=== PATIENT | male | born 1975 | race Caucasian/White ===

== ENCOUNTER 2018-11-08 16:07 | Emergency (ER) | payer MEDICAID ==
[~2018-11-08] VITALS: Ht 180.3 cm; Wt 62.0 kg
[~2018-11-08 16:07] MED LIST: LACT1CAP26 PO; NO HOME MEDS
[2018-11-08] MEDS ORDERED: TETanus/Pertussis (Acell)/Diphther VAC/PF (Tdap-Adult) 0.5ml syringe IM ONE (16:15)
[2018-11-08] MEDS ORDERED: normal saline 1000ML IV soln IVB ONE (16:15)
[2018-11-08] MEDS ORDERED: LIDOcaine 1% w/epiNEPHrine 1:200,000 30ml vial IM ONE (16:15)
[2018-11-08 16:47] LABS: BASOPHILS # (AUTO) 0.1 X10'3 (0-0.2); BASOPHILS % (AUTO) 0.7 % (0-1); EOSINOPHILS # (AUTO) 0.1 X10'3 (0-0.9); EOSINOPHILS % (AUTO) 1.4 % (0-6); HEMATOCRIT 40.4 % (42.0-52.0); HEMOGLOBIN 13.9 g/dl (14.0-17.9); LYMPHOCYTES # (AUTO) 1.9 X10'3 (1.1-4.8); LYMPHOCYTES % (AUTO) 19.4 % (21-51); MEAN CORPUSCULAR HEMOGLOBIN 32.4 PG (27.0-31.0); MEAN CORPUSCULAR HGB CONC 34.3 g/dL (33.0-36.5); MEAN CORPUSCULAR VOLUME 94.4 FL (78-98); MEAN PLATELET VOLUME 9.1 FL (7.4-10.4); MONOCYTES % (AUTO) 10.6 % (2-12); NEUTROPHILS # (AUTO) 6.5 X10'3 (1.8-7.7); NEUTROPHILS % (AUTO) 67.9 % (42-75); PLATELET COUNT 248 X10'3 (140-440); RED BLOOD COUNT 4.28 X10'6 (4.70-6.10); RED CELL DISTRIBUTION WIDTH 14.8 % (11.5-14.5); WHITE BLOOD COUNT 9.6 X10'3 (4.5-11.0)
[2018-11-08 16:59] VITALS: BP_DIAS 97
[2018-11-08 17:00] LABS: ALANINE AMINOTRANSFERASE 448 U/L (12-78); ALBUMIN 3.8 G/DL (3.4-5.0); ALBUMIN/GLOBULIN RATIO 0.9 (1.1-1.5); ALKALINE PHOSPHATASE 98 IU/L (46-116); ANION GAP 12 (8-16); ASPARTATE AMINO TRANSFERASE 197 U/L (10-37); BILIRUBIN,TOTAL 0.6 MG/DL (0.1-1.0); BLOOD UREA NITROGEN 26 MG/DL (7-18); BUN/CREATININE RATIO 22.2 (5.4-32.0); CALCIUM 9.8 MG/DL (8.5-10.1); CHLORIDE 105 MMOL/L (99-107); CREATININE 1.17 MG/DL (0.60-1.10); ETHANOL < 0.010 GM/DL (0.0-0.010); GLUCOSE 101 MG/DL (70-104); POTASSIUM 4.1 MMOL/L (3.5-5.1); SODIUM 140 MMOL/L (135-145); TOTAL CARBON DIOXIDE 23.4 MMOL/L (24-32); TOTAL PROTEIN 8.2 G/DL (6.4-8.2); eGFR 68 ML/MIN
[2018-11-08 17:28] VITALS: BP_SYST 146
[2018-11-08] MEDS ORDERED: AMOX-422 PO (17:32)
[2018-11-08] MEDS ORDERED: amox tr/potassium clavulanate 875/125mg TAB PO ONE (17:35)
== END 2018-11-08 17:56 ==
LOC: ER 16:08
DX: S81.811A Laceration without foreign body, right lower leg, initial encounter (principal); F15.10 Other stimulant abuse, uncomplicated; I10 Essential (primary) hypertension; G89.29 Other chronic pain; F12.10 Cannabis abuse, uncomplicated; Z59.0 Homelessness; W54.0XXA Bitten by dog, initial encounter; Y93.02 Activity, running; Y92.89 Other specified places as the place of occurrence of the external cause; Y99.8 Other external cause status
CPT/HCPCS: 12004; 36415; 73590; 80053; 80320; 85025; 90471; 90715; 99284; J3490; J7030

== ENCOUNTER 2019-03-03 01:42 | Emergency (ER) | payer MEDICAID, OTHER ==
[~2019-03-03] VITALS: Ht 182.9 cm; Wt 62.0 kg
[2019-03-03] MEDS ORDERED: ondansetron/PF 4mg/2ml inj IV ONE (02:30)
[2019-03-03] MEDS ORDERED: ketorolac trometh. 30mg/ml inj. IV ONE (02:30)
[2019-03-03 02:41] LABS: BASOPHILS % (AUTO) 0.3 % (0-1); EOSINOPHILS % (AUTO) 0.4 % (0-6); HEMATOCRIT 45.4 % (42.0-52.0); HEMOGLOBIN 15.5 g/dl (14.0-17.9); LYMPHOCYTES # (AUTO) 2.2 X10'3 (1.1-4.8); LYMPHOCYTES % (AUTO) 21.2 % (21-51); MEAN CORPUSCULAR HGB CONC 34.1 g/dL (33.0-36.5); MEAN CORPUSCULAR VOLUME 96.7 FL (78-98); MEAN PLATELET VOLUME 11.2 FL (7.4-10.4); MONOCYTES # (AUTO) 0.9 X10'3 (0-0.9); MONOCYTES % (AUTO) 8.5 % (2-12); NEUTROPHILS # (AUTO) 7.3 X10'3 (1.8-7.7); NEUTROPHILS % (AUTO) 69.6 % (42-75); PLATELET COUNT 186 X10'3 (140-440); RED CELL DISTRIBUTION WIDTH 14.5 % (11.5-14.5); WHITE BLOOD COUNT 10.5 X10'3 (4.5-11.0)
[2019-03-03 02:47] LABS: ALANINE AMINOTRANSFERASE 287 U/L (12-78); ALBUMIN/GLOBULIN RATIO 0.9 (1.1-1.5); ALKALINE PHOSPHATASE 79 IU/L (46-116); ANION GAP 13 (8-16); ASPARTATE AMINO TRANSFERASE 115 U/L (10-37); BILIRUBIN,TOTAL 0.5 MG/DL (0.1-1.0); BLOOD UREA NITROGEN 18 MG/DL (7-18); BUN/CREATININE RATIO 18.9 (5.4-32.0); CHLORIDE 109 MMOL/L (99-107); CREATININE 0.95 MG/DL (0.60-1.10); GLUCOSE 156 MG/DL (70-104); LIPASE 88 U/L (73-393); POTASSIUM 3.9 MMOL/L (3.5-5.1); SODIUM 145 MMOL/L (135-145); TOTAL CARBON DIOXIDE 22.8 MMOL/L (24-32); TOTAL PROTEIN 8.3 G/DL (6.4-8.2); eGFR 87 ML/MIN
[2019-03-03] MEDS ORDERED: iohexol 300mg/ml 100ml inj. ONE (02:52)
--- NOTE | 2019-03-03 05:41 | NUR ---
ADMINISTERED TWO SOAPSUDS ENEMAS AND ONE MINERAL OIL ENEMA. PATIENT HAS PASSED TWO SMALL HARD STOOLS. PATIENT STILL COMPLAINS OF SEVERE ABDOMINAL PAIN. ADVISED
[2019-03-03] MEDS ORDERED: bisacodyl 5mg tablet.DR PO ONE (06:05)
[2019-03-03 06:58] LABS: CLARITY,URINE CLEAR (Clear); COLOR,URINE YELLOW (Yellow); GLUCOSE, URINE NEGATIVE (Neg); KETONES,URINE TRACE mg/dl (Neg); LEUKOCYTE ESTERASE ,URINE NEGATIVE (Neg); NITRITES, URINE NEGATIVE (Neg); OCCULT BLOOD,URINE NEGATIVE (Neg); PH,URINE 6.5 (4.8-8.0); PROTEIN,URINE NEGATIVE (Neg)
[2019-03-03 07:05] LABS: UA COLLECTION TYPE NON-SPECIFIED
[2019-03-03] MEDS ORDERED: MAGN296S50 PO (07:54)
[2019-03-03 08:00] VITALS: BP 110/70
[2019-03-03] MEDS ORDERED: calcium chloride 100 MG/1 ML inj IV ONE (08:00)
[2019-03-03] MEDS ORDERED: sodium bicarbonate 1mEq/ml 10ml Pediatric syringe/vial IV ONE (08:00)
[2019-03-03] MEDS ORDERED: 0.9 % SODIUM CHLORIDE 10 ML VIAL ONE (08:00)
[2019-03-03] MEDS ORDERED: epiNEPHrine 0.1mg/ml 10ml syringe ONE (08:00)
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
[2019-03-03 09:22] LABS: URINE AMPHETAMINE SCREEN NEGATIVE (Neg); URINE BARBITUATE SCREEN NEGATIVE (Neg); URINE BENZODIAZEPINES SCREEN NEGATIVE (Neg); URINE CANNABINOID SCREEN NEGATIVE (Neg); URINE COCAINE SCREEN NEGATIVE (Neg); URINE METHADONE SCREEN NEGATIVE (Neg); URINE OPIATE SCREEN NEGATIVE (Neg); URINE PHENCYCLIDINE SCREEN NEGATIVE (Neg)
--- NOTE | 2019-03-03 09:30 | NUR ---
I CALLED THE [employer]OR NETWORK AND PT IS NOT A CANIDATE FOR DONOR. I CALLED AND LEFT MESSAGE WITH AIR DEODORIZER SERVICER AND MESSAGE WASN'T RETURNED. AIR DEODORIZER SERVICER FROM THE [facility] CAME TO TAKE THE BODY AND PITER WILL NOTIFY FAMILY. AIR DEODORIZER SERVICER SIGNED ALL PAPERWORK AND HE TRANSPORTED PT OUT. ALL LINES, TUBES WERE LEFT IN PLACE. CODE BLUE DOCUMENTATION AND CODE BLUE PAPERWORK COMPLETED.
--- NOTE | 2019-03-03 09:58 | NUR ---
SEE CODE BLUE RECORD AND RESUSCITATION RECORD
== END 2019-03-03 10:00 | disposition expired ==
LOC: ER 01:42
DX: I46.9 Cardiac arrest, cause unspecified (principal); K59.00 Constipation, unspecified; I10 Essential (primary) hypertension; G89.29 Other chronic pain; F12.90 Cannabis use, unspecified, uncomplicated; Z59.0 Homelessness; Z98.890 Other specified postprocedural states; Z79.899 Other long term (current) drug therapy
CPT/HCPCS: 31500; 36415; 74177; 80053; 80305; 81003; 82948; 83690; 85025; 85610; 92950; 96374; 96375; 99285; J0171; J1885; J2405; Q9967